=== PATIENT | female | born 1965 | race Caucasian/White ===

== ENCOUNTER → 2017-07-04 | Outpatient (CLI) | payer BC ==
--- NOTE | 2017-07-05 14:06 | Diagnostic Imaging Report ---
EXAMINATION: Bilateral screening mammogram 2D views with tomosynthesis. The current study was also evaluated with a Computer Aided Detection (CAD) system. INDICATION: Screening. PERSONAL HISTORY: No current complaints stated on the questionnaire. COMPARISON: 06/24/2016. FINDINGS: The breasts are composed of heterogeneously dense parenchyma which may decrease mammographic sensitivity. There are occasional benign-appearing calcifications seen. Allowing for technique and positional differences, no suspicious change is seen. IMPRESSION: Dense breasts with no definite change. ACR BI-RADS Category 2: Benign findings. Result letter will be mailed to the patient. Note: At least 10% of breast cancer is not imaged by mammography. Dictated by: Dictated on workstation # [id number]
== END ==
LOC: RAD 07:09
PROVIDERS: ATTEND Family Medicine
DX: Z12.31 Encounter for screening mammogram for malignant neoplasm of breast (principal)
CPT/HCPCS: 77067

== ENCOUNTER → 2018-07-12 | Outpatient (CLI) | payer BC ==
--- NOTE | 2018-07-12 12:18 | Diagnostic Imaging Report ---
INDICATION: Routine screening. COMPARISON is made with prior mammograms from 07/04/2017 and 07/02/2016. TECHNIQUE: 2-D and 3-D bilateral screening mammography was performed with CAD. FINDINGS: Both breasts show marked parenchymal heterogeneity and increased density, limiting the sensitivity of mammography. Scattered benign-appearing calcifications are noted bilaterally. There is a focal density in the right breast retroareolar region, more prominent when compared with prior exams. Additional views are recommended. No corresponding density on the MLO view is seen. No other masses are identified. The axillae are unremarkable. IMPRESSION: BI-RADS Category 0. Right breast density. Additional views are recommended. ACR BI-RADS Category 0: Incomplete. (Needs additional imaging evaluation). Result letter will be mailed to the patient. Note: At least 10% of breast cancer is not imaged by mammography. Dictated by: Dictated on workstation # [id number]
== END ==
LOC: RAD 07:16
PROVIDERS: ATTEND Family Medicine
DX: Z12.31 Encounter for screening mammogram for malignant neoplasm of breast (principal)
CPT/HCPCS: 77067

== ENCOUNTER → 2018-08-02 | Outpatient (CLI) | payer BC ==
--- NOTE | 2018-08-02 14:07 | Diagnostic Imaging Report ---
Indication: Right breast density. Patient presents for additional views. Correlation is made with recent screening study from 07/12/2018. Unilateral right 2-D and 3-D diagnostic mammography was performed including spot compression CC, rolled CC and 90 degree lateral view. Right breast remains heterogeneously dense. Area of density noted retroareolar right breast appears to resolve with additional views. This most likely represents superimposed tissue. No mass is detected. Impression: BI-RADS category one Additional views fail to demonstrate a discrete mass. The patient may return to routine annual screening mammography. ACR BI-RADS Category 1: Negative. Result letter will be mailed to the patient. Note: At least 10% of breast cancer is not imaged by mammography. Dictated by: Dictated on workstation # [id number]
== END ==
LOC: RAD 12:52
PROVIDERS: ATTEND Nurse Practitioner Family
DX: R92.2 Inconclusive mammogram (principal)

== ENCOUNTER → 2019-07-17 | Outpatient (CLI) | payer BC ==
--- NOTE | 2019-07-17 12:39 | Diagnostic Imaging Report ---
INDICATION: Routine screening. COMPARISON: Comparison is made with prior mammograms from 07/12/2018 and 07/04/2017. TECHNIQUE: 2-D and 3-D bilateral screening mammography was performed. The current study was also evaluated with a Computer Aided Detection (CAD) system. 3-D tomosynthesis was also performed and reviewed. FINDINGS: Both breasts are heterogeneously dense, limiting the sensitivity of mammography. Benign calcifications are scattered throughout both breasts. The parenchymal pattern is stable. No mass or malignant-appearing microcalcifications are seen. Axillae are unremarkable. IMPRESSION: No mammographic features suspicious for malignancy are identified. ACR BI-RADS Category 2: Benign findings. Result letter will be mailed to the patient. Note: At least 10% of breast cancer is not imaged by mammography. Dictated by: Dictated on workstation # [id number]
== END ==
LOC: RAD 07:14
PROVIDERS: ATTEND Family Medicine
DX: Z12.31 Encounter for screening mammogram for malignant neoplasm of breast (principal)
CPT/HCPCS: 77067

== ENCOUNTER → 2020-07-22 | Outpatient (CLI) | payer BC ==
--- NOTE | 2020-07-22 13:20 | Diagnostic Imaging Report ---
INDICATION: Routine screening. COMPARISON: 07/17/2019 and 07/12/2018. TECHNIQUE: 2D and 3D bilateral screening mammography was performed with CAD. FINDINGS: Both breasts remain heterogeneously dense, limiting the sensitivity of mammography. Benign calcifications scattered throughout both breasts are again noted. There is a circumscribed ovoid lesion in the lower and lateral aspect of the left breast, best seen on tomographic image 19 on the MLO views. There appears to have been a small lesion at this location on the prior and this may represent an enlarging cyst. This is difficult to see on the CC view. No other masses are identified. The axillae are unremarkable. IMPRESSION: Enlarging ovoid lesion in the lower outer left breast approximately 5 cm from the nipple. Further evaluation of this area with ultrasound is recommended. The study is otherwise unremarkable. ACR BI-RADS Category 0: Incomplete. (Needs additional imaging evaluation). Result letter will be mailed to the patient. Note: At least 10% of breast cancer is not imaged by mammography. Dictated by: Dictated on workstation # [id number]
== END ==
LOC: RAD 07:30
PROVIDERS: ATTEND Family Medicine
DX: Z12.31 Encounter for screening mammogram for malignant neoplasm of breast (principal); N64.89 Other specified disorders of breast
CPT/HCPCS: 77063; 77067

== ENCOUNTER → 2020-07-28 | Outpatient (CLI) | payer BC ==
--- NOTE | 2020-07-28 15:19 | Diagnostic Imaging Report ---
INDICATION: Palpable abnormality. TECHNIQUE: Multiple Real-time grayscale images were obtained of the left breast in various projections. FINDINGS: There are multiple benign-appearing cysts seen in the upper outer quadrant of the left breast. The largest measures 1.1 cm. This is in the 6 o'clock position. IMPRESSION: Benign findings as above. ACR BI-RADS Category 2: Benign findings. Multiple benign-appearing cysts otherwise unremarkable Dictated by: Dictated on workstation # [id number]
== END ==
LOC: RAD 13:45
PROVIDERS: ATTEND Family Medicine
DX: N60.02 Solitary cyst of left breast (principal)
CPT/HCPCS: 76642

== ENCOUNTER → 2021-07-31 | Outpatient (CLI) | payer BC ==
--- NOTE | 2021-08-03 13:40 | Diagnostic Imaging Report ---
EXAMINATION: Digital mammogram bilateral screening with CAD. INDICATION: Screening. COMPARISON: This study was compared to the prior exams of 07/22/2020, 07/17/2019, and 07/12/2018. PERSONAL HISTORY: At this time, there are no current complaints. FINDINGS: The fibroglandular tissue in both breasts is heterogeneously dense. This does limit the sensitivity of this exam. Overall, there does not appear to have been any significant change when compared to the prior study. No primary or secondary sign of malignancy is noted. As on the previous study, there are innumerable benign-appearing microcalcifications scattered throughout both breasts. IMPRESSION: There is no radiographic evidence for malignancy. ACR BI-RADS Category 1: Negative. Result letter will be mailed to the patient. Note: At least 10% of breast cancer is not imaged by mammography. Dictated by: Dictated on workstation # [id number]
== END ==
LOC: RAD 07:30
PROVIDERS: ATTEND Family Medicine
DX: Z12.31 Encounter for screening mammogram for malignant neoplasm of breast (principal)
CPT/HCPCS: 77063; 77067

== ENCOUNTER → 2022-08-09 | Outpatient (CLI) | payer BC ==
--- NOTE | 2022-08-09 10:35 | Diagnostic Imaging Report ---
INDICATION: Routine screening. COMPARISON: 07/31/2021 and 07/22/2020. TECHNIQUE: 2D and 3D bilateral screening mammography was performed with CAD. FINDINGS: Both breasts are heterogeneously dense, limiting the sensitivity of mammography. Benign calcifications are noted throughout both breasts. No mass or malignant-appearing microcalcifications are seen. The axillae are unremarkable. IMPRESSION: No mammographic features suspicious for malignancy are identified. ACR BI-RADS Category 2: Benign findings. Result letter will be mailed to the patient. Note: At least 10% of breast cancer is not imaged by mammography. Dictated by: Dictated on workstation # [id number]
== END ==
LOC: RAD 07:30
PROVIDERS: ATTEND Family Medicine
DX: Z12.31 Encounter for screening mammogram for malignant neoplasm of breast (principal)
CPT/HCPCS: 77063; 77067